=== PATIENT | male | born 1960 | race Caucasian/White ===

== ENCOUNTER → 2017-10-25 18:45 | Outpatient (CLI) | payer BC, SELFPAY ==
--- NOTE | 2017-10-25 18:47 | CT_ITS ---
STUDY: LOW DOSE CT LUNG CANCER SCREENING REASON FOR EXAM: Male, 57 years old. 30 pack-year smoker. History of recent pneumonia. RADIATION DOSAGE (If Supplied By Facility): CTDIvol = ( 3.40 ) mGy, DLP = ( 107.21 ) mGycm TECHNIQUE: No contrast was administered. Low dose technique was utilized (average mAS-38 and kVp 120). 1.25 mm axial source images with a slice interval of 1.25-mm were reconstructed in lung windows. 2.5 mm axial source images with a slice interval of 2.5-mm were reconstructed in lung windows. 5.0 mm axial source images with a slice interval of 5.0-mm were reconstructed in soft tissue windows. Nodule measured using lung windows on PACS and/or independent workstation with automated measurement of minimum and maximum diameter. Nodule measurement reported as average diameter rounded to the nearest whole number. Growth is defined as an increase ins size of greater than 1.5 mm. COMPARISON: Comparison is made with prior chest radiograph dated March 28, 2018. NODULES: No nodular densities are seen. There is evidence of a consolidation and the loss of volume in the superior segment of the right lower lobe. Air bronchograms are seen. This abuts the minor fissure. This extends into the peripheral aspect of the right lower lobe. There is also evidence of a focal infiltration in the posteromedial segment of the left lower lobe. Mild bronchiectasis. Radiographic follow-up is recommended until completion. Emphysema: Mild degree of emphysematous changes. Aorta: Unremarkable. Coronary arteries: No calcification. Heart: Unremarkable Mediastinal nodes: Small benign-appearing mediastinal lymph nodes. Other chest and abdominal findings: The chest changes of the thoracic spine. CT/Low Dose CT Lung Screening IMPRESSION: Infiltration in the superior segment of the right lower lobe as well as patchy infiltrate in the posterior medial segment of the left lower lobe. This infiltration is slightly irregular with areas of bronchiectasis. Radiographic follow-up until clearing is recommended. IMPORTANT NOTES FOR USE: ACR Lung-RADS Version 1.0 Assessment Categories Release Date: January 08, 2014 Category: Coded 0-4 bases on nodule(s) with highest degree of suspicion. Negative screen is defined as categories 1 and 2; a positive screen is defined as categories 3 and 4. Category 3 and 4A nodules that are unchanged on interval CT should be coded as category 2, and individuals returned to screening in 12 months. Category 4X: Category 3 or 4 nodules with additional imaging findings that increase the suspicion of lung cancer, such as spiculation, GGN that doubles in size in 1 year, enlarged lymph notes, etc. Category Modifiers: S (significant finding unrelated to lung cancer) and C (prior history of treated lung cancer) may be added to the 0-4 Lung-RADS Electronically Signed: Clif Shaw MD at 15:11 EST Tel [phone], Service support ,
== END ==
PROVIDERS: Family Provider Family Medicine; PCP Family Medicine; Visit Provider Internal Medicine Pulmonary Disease
DX: J12.89 Other viral pneumonia (principal); Z87.891 Personal history of nicotine dependence
CPT/HCPCS: G0297

== ENCOUNTER → 2017-11-18 09:41 | Outpatient (CLI) | payer BC, SELFPAY ==
--- NOTE | 2017-11-18 09:45 | RAD_ITS ---
STUDY: X-RAY CHEST REASON FOR EXAM: Male, 57 years old. Pneumonia TECHNIQUE: Frontal and lateral views of the chest COMPARISON: 09/28/2017 FINDINGS: There is stable linear opacity in the lung bases, consistent with atelectasis. The lungs are otherwise clear. There are no pleural effusions. The previously seen pleural effusions have resolved. There is no pneumothorax. The heart is normal in size. The visualized osseous structures are within normal limits. RAD/Chest PA and Lateral IMPRESSION: Resolution of the previously seen pleural effusions. Linear atelectasis at the lung bases which is consistent with atelectasis. No infiltrate. Electronically Signed: Jd Cruz, at 19:03 EST Tel , Service support ,
[2017-11-18 12:11] LABS: Hematocrit 42.8 % (40-54); Hemoglobin 13.7 g/dl (13.0-16.5); Mean Corpuscular Hgb 29.9 pg (27.0-32.0); Mean Corpuscular Volume 93.4 fL (80-94); Mean Platelet Vol. 9.6 fl (6.2-12.0); Platelet Count 405 K/mm3 (150-450); RBC Distribution Width CV 13.8 % (11.6-14.6); RBC Distribution Width SD 46.8 fl (35.1-43.9); Red Blood Count 4.58 M/mm3 (4.6-6.2); White Blood Count 9.4 K/mm3 (4.4-11.0)
[2017-11-18 12:12] LABS: Erythrocyte Sedimentation Rate 6 mm/hr (0-20); Scan Indicated on CBC? Y/N NO
[2017-11-18 12:14] LABS: CRP < 2.90 mg/L (0.0-3.0)
== END ==
PROVIDERS: Family Provider Family Medicine; PCP Family Medicine; Visit Provider Internal Medicine Pulmonary Disease
DX: J84.116 Cryptogenic organizing pneumonia (principal); M25.50 Pain in unspecified joint
CPT/HCPCS: 36415; 71046; 85027; 85652; 86140